=== PATIENT | male | born 1975 | race Two or more races ===

== ENCOUNTER 2024-09-17 11:11 | Emergency (ER) | payer OTHER ==
[~2024-09-17] VITALS: Ht 162.6 cm; Wt 68.0 kg
[2024-09-17] MEDS ORDERED: DESCOVY 120-151 EACH PO (11:26)
[2024-09-17 15:38] LABS: HEMATOCRIT 42.9 % (39.0-48.0); HEMOGLOBIN 14.4 g/dL (13-16.00); MEAN CELL VOLUME 95.3 fL (80.0-100.00); MEAN CORPUSCULAR HGB CONC 33.6 g/dl (32.0-36.0); PLATELET COUNT 220 K/uL (150-450); RED CELL DISTRIBUTION WIDTH 12.9 % (11.5-14.5)
[2024-09-17 16:13] LABS: URINE APPEARANCE Clear; URINE BILIRRUBIN Negative (NEGATIVE); URINE BLOOD Negative; URINE COLOR Yellow; URINE GLUCOSE Negative (NEGATIVE); URINE KETONE Negative (NEGATIVE); URINE LEUKOCYTE Small; URINE NITRATE Negative; URINE PROTEIN Negative (NEGATIVE)
[2024-09-17] MEDS ORDERED: PENICILLIN G BENZATHINE LA 1.2 MMU/2 ML DISP.SYRIN IM ONE (16:15)
[2024-09-17 16:17] LABS: URINE BACTERIA 17.6 uL (0.0-1933); URINE RBC 5.8 uL (0.0-20.8)
== END 2024-09-17 16:44 | disposition home or self-care (01) ==
LOC: ER 11:13
PROVIDERS: Preventive Medicine Public Health & General Preventive Medicine
DX: Z22.4 Carrier of infections with a predominantly sexual mode of transmission (principal)

== ENCOUNTER 2024-09-17 15:38 | Outpatient (CLI) | payer OTHER ==
[~2024-09-17 15:38] MED LIST: DESCOVY 120-151 EACH PO
== END 2024-09-17 15:41 | disposition home or self-care (01) ==
LOC: LAB 15:38
PROVIDERS: ATTEND Preventive Medicine Public Health & General Preventive Medicine
DX: Z00.00 Encounter for general adult medical examination without abnormal findings (principal)